=== PATIENT | female | born 1985 ===

== ENCOUNTER 2016-11-05 09:21 | Emergency (ER) | payer MEDICAID, OTHER ==
[2016-11-05 09:21] VITALS: BMI 27.8
[2016-11-05 09:37] VITALS: BP 111/69; PULSE 78; RESP 18; TEMP 97.5; O2SAT 100
--- NOTE | 2016-11-05 10:08 | ED PDOC ---
HPI: General Adult Time Seen by Provider: 11/05/16 10:06 Chief Complaint (Nursing): GI Problem Chief Complaint (Provider): diarrhea History Per: Patient History/Exam Limitations: no limitations Additional Complaint(s): 30yo female with diarrhea for 2 days. Now she is vomiting. No fever, abdominal pain, vaginal bleeding. Past Medical History Reviewed: Historical Data, Nursing Documentation, Vital Signs Vital Signs: Last Vital Signs Temp 97.5 F L 11/05/16 09:47 Pulse 78 11/05/16 09:47 Resp 18 11/05/16 09:47 BP 111/69 11/05/16 09:47 Pulse Ox 100 11/05/16 10:10 - Medical History PMH: No Chronic Diseases - Surgical History Surgical History: Denies: Back Surgery - Family History Family History: States: Unknown Family Hx - Living Arrangements Living Arrangements: With Family - Social History Drugs: Denies - Home Medications Home Medications: Ambulatory Orders Medication Instructions Recorded Vitamins6 [ 1 tab PO DAILY 08/11/15 Vitamin] Ibuprofen 600 mg PO Q6 PRN #25 tab 09/26/15 Ibuprofen [Motrin Tab] 600 mg PO Q6 PRN #25 tab 09/26/15 Pnv No.122/Iron/Folic Acid 1 each PO DAILY #30 tablet 09/26/15 [ Multi Tablet] Ondansetron [Zofran] 4 mg PO Q8H #10 tab 11/05/16 - Allergies Allergies/Adverse Reactions: Allergies Allergy/AdvReac Type Severity Reaction Status Date / Time No Known Allergies Allergy Verified 11/05/16 09:47 Review of Systems ROS Statement: Except As Marked, All Systems Reviewed And Found Negative Constitutional: Negative for: Fever Gastrointestinal: Positive for: Nausea, Vomiting, Diarrhea. Negative for: Abdominal Pain Genitourinary Female: Negative for: Vaginal Bleeding Physical Exam - Reviewed Nursing Documentation Reviewed: Yes Vital Signs Reviewed: Yes - Physical Exam Appears: Positive for: Well, Non-toxic, No Acute Distress Head Exam: Positive for: ATRAUMATIC, NORMAL INSPECTION, NORMOCEPHALIC Skin: Positive for: Warm, Dry Eye Exam: Positive for: EOMI, PERRL ENT: Positive for: Other (dry mucous membranes) Cardiovascular/Chest: Positive for: Regular Rate, Rhythm Respiratory: Positive for: Normal Breath Sounds. Negative for: Rales, Rhonchi, Wheezing Gastrointestinal/Abdominal: Positive for: Normal Exam, Bowel Sounds, Soft. Negative for: Tenderness Extremity: Positive for: Normal ROM - Laboratory Results Result Diagrams: 11/05/16 11:12 11/05/16 11:12 - ECG O2 Sat by Pulse Oximetry: 100 (RA) Pulse Ox Interpretation: Normal Disposition - Clinical Impression Clinical Impression: Gastroenteritis - Patient ED Disposition Is Patient to be Admitted: No Counseled Patient/Family Regarding: Studies Performed, Diagnosis, Need For Followup, Rx Given - Disposition Referrals: [facility] [Outside] Disposition: Routine/Home Disposition Time: 13:15 Condition: FAIR Prescriptions: Ondansetron [Zofran] 4 mg PO Q8H #10 tab Instructions: Gastroenteritis (ED) Additional Comments - Additional Comments Additional Comments: Scribe Attestation: Documented by Wagner Christensen acting as a scribe for Bobby Sr MD. Provider Scribe Attestation: All medical record entries made by the Scribe were at my direction and personally dictated by me. I have reviewed the chart and agree that the record accurately reflects my personal performance of the history, physical exam, medical decision making, and the department course for this patient. I have also personally directed, reviewed, and agree with the discharge instructions and disposition.
[2016-11-05] MEDS ORDERED: Sodium Chloride 0.9% 1,000 ML IV STA (10:10)
[2016-11-05 11:27] LABS: BASO % 0.6 % (0.0-2.0); EOS # 0.1 K/uL (0.0-0.7); EOS % 2.1 % (0.0-4.0); HEMATOCRIT 43.9 % (34.0-47.0); LYMPH # 1.6 K/uL (1.0-4.3); LYMPH % 25.7 % (20.0-40.0); MEAN CORPUSCULAR HEMOGLOBIN 31.1 pg (27.0-31.0); MEAN CORPUSCULAR HGB CONC 33.4 g/dL (33.0-37.0); MEAN PLATELET VOLUME 10.3 fl (7.2-11.7); MONO # 0.7 K/uL (0.0-0.8); MONO % 11.9 % (0.0-10.0); NEUT # 3.7 K/uL (1.8-7.0); NEUT % 59.7 % (50.0-75.0); NRBC % 0.2 % (0.0-0.0); RED CELL DISTRIBUTION WIDTH 13.4 % (11.5-14.5); WHITE BLOOD COUNT 6.2 K/uL (4.8-10.8)
[2016-11-05 11:31] LABS: MEAN CELL VOLUME 92.9 fl (81.0-99.0)
[2016-11-05 11:40] LABS: ALB/GLOB RATIO 1.4 (1.0-2.1); ALKALINE PHOSPHATASE 90 U/L (38-126); ALT/SGPT 47 U/L (9-52); AST/SGOT 36 U/L (14-36); BILIRUBIN,TOTAL 1.1 mg/dl (0.2-1.3); BLOOD UREA NITROGEN 10 mg/dl (7-17); CALCIUM 8.8 mg/dL (8.4-10.2); CARBON DIOXIDE 18 mmol/L (22-30); CHLORIDE 104 mmol/L (98-107); GFR AFRICAN-AMERICAN > 60; GLUCOSE,RANDOM 77 mg/dL (65-105); SODIUM 140 mmol/l (132-148); TOTAL PROTEIN 7.9 G/DL (6.3-8.2)
[2016-11-05 11:41] LABS: POTASSIUM 3.8 MMOL/L (3.6-5.0)
== END 2016-11-05 14:03 | disposition home or self-care (01) ==
LOC: H.ER 09:21
DX: K52.9 Noninfective gastroenteritis and colitis, unspecified (principal)